=== PATIENT | male | born 1985 | race Caucasian/White ===

== ENCOUNTER 2017-07-26 12:18 | Emergency (ER) | payer OTHER ==
[~2017-07-26] VITALS: Ht 198.1 cm; Wt 97.5 kg
[~2017-07-26 12:18] MED LIST: ACETAMINOPHEN-1 EAC1 PO; AFRIN15 ML NS; AUGMENTIN 875875 MG PO; MEDROLDOSEPACK PO
[2017-07-26] MEDS ORDERED: AMOXICILLIN 50500 MG PO (12:30)
[2017-07-26 12:47] VITALS: BP 165/92
== END 2017-07-26 12:48 | disposition home or self-care (01) ==
LOC: M.ERS 12:18
DX: K04.7 Periapical abscess without sinus (principal)